=== PATIENT | female | born 1975 | race Caucasian/White ===

== ENCOUNTER → 2017-06-27 | Outpatient (CLI) | payer BC ==
--- NOTE | 2017-06-27 17:55 | EKG ---
Date Performed: 06/27/2017 Time Performed: 07:38:46 PTAGE: 41 years EKG: Sinus rhythm . Nonspecific ST-T wave changes Borderline ECG NO PREVIOUS TRACING DOCTOR: Tucker Fermin Interpretating Date/Time 06/27/2017 17:54:29
== END ==
LOC: HCAV 07:28
PROVIDERS: ATTEND Surgery
DX: Z01.810 Encounter for preprocedural cardiovascular examination (principal)
CPT/HCPCS: 93005

== ENCOUNTER 2017-10-26 05:36 | Inpatient (IN) | payer BC ==
[~2017-10-26] VITALS: Ht 165.1 cm; Wt 120.0 kg
[2017-10-26] MEDS: ACETAMINOPHEN 1000 MG/100 ML 100 ML IV SCH ×2 (00:05→17:30)
[~2017-10-26 05:36] MED LIST: CHOL5000 PO; MAGN400T2 PO; MULT-65 PO
[2017-10-26] MEDS ORDERED: ceFAZolin 2 GM PREMIX 50 ML IV SCH (06:30)
[2017-10-26] MEDS ORDERED: METOPROLOL TARTRATE 25 MG TAB PO PRN (06:30)
[2017-10-26] MEDS ORDERED: SODIUM CHLORID 0.9% 500 ML IV PRN (06:30)
[2017-10-26] MEDS ORDERED: LACTATED RINGER'S 1000 ML IV PRN (06:30)
[2017-10-26] MEDS ORDERED: ACETAMINOPHEN 1000 MG/100 ML 100 ML IV SCH (06:30)
[2017-10-26] MEDS ORDERED: ONDANSETRON HCL 4 MG/2 ML VIAL IV PUSH SCH (06:30)
[2017-10-26] MEDS ORDERED: SCOPOLAMINE 1.5 MG PATCH T-DERMAL SCH (06:30)
[2017-10-26] MEDS ORDERED: CHLORHEXIDINE GLUCONATE 2 % 1 PACK (2 CLOTHS) TOPICAL PRN (06:30)
[2017-10-26] MEDS ORDERED: metroNIDAZOLE 500 MG INJ 100 ML IV SCH (06:30)
[2017-10-26] MEDS ORDERED: POVIDONE IODINE 5% (ANTISEPSIS KIT) 4 APPLICATIONS EACH NARE PRN (06:30)
[2017-10-26] MEDS ORDERED: APREPITANT 40 MG CAP PO SCH (06:30)
[2017-10-26] MEDS ORDERED: NEOSTIGMINE 5 MG/5 ML SYRINGE IV PUSH ONE (12:00)
[2017-10-26] MEDS ORDERED: ceFAZolin INJ 1,000 MG VIAL IV ONE (12:00)
[2017-10-26] MEDS ORDERED: PROPOFOL 200 MG/20 ML AMP IV ONE (12:00)
[2017-10-26] MEDS ORDERED: ROCURONIUM INJ 50 MG/5 ML SYRINGE IV PUSH ONE (12:00)
[2017-10-26] MEDS ORDERED: PHENYLEPH/NS 1000 MCG/10 ML SYR IV ONE (12:00)
[2017-10-26] MEDS ORDERED: GLYCOPYRROLATE 1 MG/5 ML SYRINGE IV PUSH ONE (12:00)
[2017-10-26] MEDS ORDERED: LIDOCAINE HCL 1% PF 5 ML SYRINGE OTHER ONE (12:00)
[2017-10-26] MEDS ORDERED: BUPIVACAINE/EPINEPHRINE 0.25% PF 10 ML VIAL ONE (12:57)
[2017-10-26] MEDS ORDERED: ACETAMINOPHEN 1000 MG/100 ML 100 ML IV ONE (14:29)
[2017-10-26] MEDS ORDERED: ACETAMINOPHEN 325MG/HYDROcodone 7.5MG/15ML UDC PO PRN (15:45)
[2017-10-26] MEDS: D5-1/2 NS + KCL 20 MEQ INJ 1,000 ML IV SCH ×2 (15:45→22:04)
[2017-10-26] MEDS ORDERED: Post-op Orders (for Pharmacy) OTHER ONE (15:45)
[2017-10-26] MEDS ORDERED: SODIUM CHLORIDE 0.9% FLUSH 10 ML FLUSH IV FLUSH PRN (15:45)
[2017-10-26] MEDS ORDERED: diphenhydrAMINE HCL ELIXIR 12.5 MG/5 ML CUP PO PRN (15:45)
[2017-10-26] MEDS ORDERED: diphenhydrAMINE HCL 50 MG/ML VIAL IV PUSH PRN (15:45)
[2017-10-26] MEDS ORDERED: ENALAPRILAT 1.25 MG/ML VIAL IV PUSH PRN (15:45)
[2017-10-26] MEDS ORDERED: ONDANSETRON HCL 4 MG/2 ML VIAL IV PUSH PRN (15:45)
--- NOTE | 2017-10-26 15:45 | HHI.PR ---
Immediate Post Op Note Procedure Date: Oct 26, 2017 Pre Op Diagnosis: morbid obesity, bmi 44, hypercholesteremia, arthritis, ibs Post Op Diagnosis: same, hiatal hernia Surgeon: Salty Sol MD [facility] Professional(s): Dr. Tolbert Procedure: lap sleeve gastrectomy, lap hiatal hernia repair Findings: no leak with methylene blue Complications: none Specimen(s) removed: none Estimated blood loss: 5cc Anesthesia: General Drains: None Patient to: PACU Patient Condition: Good Salty Sol MD Oct 26, 2017 15:45
[2017-10-26] MEDS ORDERED: MIDAZOLAM HCL 2 MG/2 ML VIAL ONE (15:59)
[2017-10-26] MEDS: METOCLOPRAMIDE HCL 10 MG/2 ML VIAL IV PUSH SCH ×2 (16:00→22:04)
[2017-10-26] MEDS: PANTOPRAZOLE SOD 40 MG DELAYED RELEASE TAB PO SCH (16:00)
[2017-10-26] MEDS ORDERED: *ONDANSETRON 4 MG VIAL PERIprocedural Use ONLY ONE (16:03)
[2017-10-26] MEDS ORDERED: *morphine SULFATE 8 MG/ML PERIprocedure ONLY ONE ×2 (16:18→18:17)
[2017-10-26] MEDS ORDERED: DO NOT ADM ANY ANTICOAGULANT DRUGS PRN (16:30)
[2017-10-26] MEDS ORDERED: *PROMETHAZINE 25 MG/ML VIAL PERIprocedural use ONLY ONE (16:34)
[2017-10-26] MEDS ORDERED: *MEPERIDINE 25 MG INJ VIAL PERIprocedural Use ONLY ONE (17:20)
[2017-10-26] MEDS: ENOXAPARIN SODIUM 40 MG/0.4 ML SYRINGE SQ SCH (20:00)
[2017-10-26] MEDS: SODIUM CHLORIDE 0.9% FLUSH 10 ML FLUSH IV FLUSH SCH (20:14)
[2017-10-26] MEDS ORDERED: *morphine SULFATE 10 MG/ML PERIprocedure ONLY ONE (20:23)
[2017-10-26] MEDS ORDERED: HYDROmorphone HCL PF 2 MG/ML VIAL ONE (20:41)
[2017-10-26] MEDS: metroNIDAZOLE 500 MG INJ 100 ML IV SCH (22:03)
[2017-10-27] VITALS (8 sets, daily range): BP systolic 107–161; BP diastolic 55–75; PULSE 62–70; RESP 18–20; TEMP 97.1–99.9; O2SAT 93–97
[2017-10-27] MEDS: metroNIDAZOLE 500 MG INJ 100 ML IV SCH ×2 (04:20→14:58)
[2017-10-27] MEDS: ACETAMINOPHEN 325MG/HYDROcodone 7.5MG/15ML UDC PO PRN ×3 (04:21→22:04)
[2017-10-27] MEDS: METOCLOPRAMIDE HCL 10 MG/2 ML VIAL IV PUSH SCH ×4 (04:23→22:04)
[2017-10-27] MEDS: ACETAMINOPHEN 1000 MG/100 ML 100 ML IV SCH ×2 (04:24→11:41)
[2017-10-27] MEDS: D5-1/2 NS + KCL 20 MEQ INJ 1,000 ML IV SCH ×3 (04:27→22:12)
[2017-10-27 06:09] LABS: AUTOMATED NEUTROPHIL # 9.2 TH/MM3 (1.8-7.7); BASOPHIL % 0.1 % (0.0-2.0); HEMATOCRIT 34.3 % (35.0-46.0); HEMOGLOBIN 12.1 GM/DL (11.6-15.3); LYMPH % 6.2 % (9.0-44.0); LYMPHOCYTE # 0.6 TH/MM3 (1.0-4.8); MEAN CELL VOLUME 91.1 FL (80.0-100.0); MEAN CORPUSCULAR HGB CONC 35.1 % (32.0-36.0); MEAN PLATELET VOLUME 9.2 FL (7.0-11.0); MONO % 3.7 % (0.0-8.0); MONOCYTE # 0.4 TH/MM3 (0-0.9); PLATELET COUNT 239 TH/MM3 (150-450); RED BLOOD COUNT 3.77 MIL/MM3 (4.00-5.30); RED CELL DISTRIBUTION WIDTH 12.7 % (11.6-17.2); WHITE BLOOD COUNT 10.2 TH/MM3 (4.0-11.0)
[2017-10-27 06:43] LABS: BICARBONATE 23.5 MEQ/L (21.0-32.0); CALCIUM 8.2 MG/DL (8.5-10.1); CREATININE 0.56 MG/DL (0.50-1.00)
[2017-10-27] MEDS: PANTOPRAZOLE SOD 40 MG DELAYED RELEASE TAB PO SCH (09:42)
[2017-10-27] MEDS: SODIUM CHLORIDE 0.9% FLUSH 10 ML FLUSH IV FLUSH SCH ×2 (09:42→22:08)
[2017-10-27] MEDS ORDERED: MORPHINE SULFATE 4 MG/ML INJ IV PUSH PRN (10:30)
[2017-10-27] MEDS ORDERED: DEXAMETHASONE SOD PHOS 20 MG/5 ML VIAL IV PUSH ONE (11:00)
--- NOTE | 2017-10-27 11:48 | HHI.PR ---
Subjective Subjective Notes Having a difficult time with nausea Going slow with PO fluids Objective Vitals/I&O Vital Signs Date Time Temp Pulse Resp B/P (MAP) Pulse Ox O2 Delivery O2 Flow Rate FiO2 10/27/17 08:40 97 21 10/27/17 08:00 98.7 64 18 112/57 (75) 10/26/17 20:30 Nasal Cannula 2 Labs Laboratory Tests Test 10/27/17 05:04 White Blood Count 10.2 Red Blood Count 3.77 Hemoglobin 12.1 Hematocrit 34.3 Mean Corpuscular Volume 91.1 Mean Corpuscular Hemoglobin 32.0 Mean Corpuscular Hemoglobin Concent 35.1 Red Cell Distribution Width 12.7 Platelet Count 239 Mean Platelet Volume 9.2 Neutrophils (%) (Auto) 90.0 Lymphocytes (%) (Auto) 6.2 Monocytes (%) (Auto) 3.7 Eosinophils (%) (Auto) 0.0 Basophils (%) (Auto) 0.1 Neutrophils # (Auto) 9.2 Lymphocytes # (Auto) 0.6 Monocytes # (Auto) 0.4 Eosinophils # (Auto) 0.0 Basophils # (Auto) 0.0 CBC Comment DIFF FINAL Differential Comment Blood Urea Nitrogen 10 Creatinine 0.56 Random Glucose 180 Calcium Level 8.2 Magnesium Level 2.0 Sodium Level 136 Potassium Level 3.6 Chloride Level 104 Carbon Dioxide Level 23.5 Anion Gap 9 Estimat Glomerular Filtration Rate 118 Cardiovascular: Regular Lungs: Clear Abdomen: Post-op tenderness Extremities: Perfused Wound Wound : Wound Location: Abdomen Appearance: Clean & Dry A/P Assessment and Plan 42yo F POD#1 laparoscopic VSG -Change metoclopramide to scheduled and add decadron 10mg IVx1 for nausea -Abdominal binder for support -Continue to increase fluids as tolerated -Needs to walk halls at least QID Discharge Planning D/C home in the morning Attending Statement patient seen at bedside some nausea will add decadron otherwise doing well keep one more day dvt ppx Attestation The exam, history, and the medical decision-making described in the above note were completed with the assistance of the mid-level provider. I reviewed and agree with the findings presented. I attest that I had a [id number] encounter with the patient on the same day, and personally performed and documented my assessment and findings in the medical record. Petrona Fontaine Oct 27, 2017 11:48 Salty Sol MD Oct 30, 2017 20:32
--- NOTE | 2017-10-27 12:21 | MP ---
cc: Salty Sol MD DATE OF OPERATION: 10/26/2017 DATE: 10/26/2017 PREOPERATIVE DIAGNOSES: Morbid obesity, BMI 44, hypercholesterolemia, arthritis, irritable bowel syndrome. POSTOPERATIVE DIAGNOSES: Morbid obesity, BMI 44, hypercholesterolemia, arthritis, irritable bowel syndrome. Hiatal hernia. SURGEON: Dr. Salty Sol. CARDIOLOGY NURSE PRACTITIONER: Dr. David Melchor. PROCEDURE PERFORMED: 1. Laparoscopic sleeve gastrectomy over a 36 ViSiGi bougie. 2. Laparoscopic hiatal hernia repair. ANESTHESIA: GETA. IV FLUIDS: See anesthesia sheet. ESTIMATED BLOOD LOSS: 5 mL. DRAINS: None. COMPLICATIONS: None. WOUND CLASSIFICATION: Clean/contaminated. SPECIMENS: None. FINDINGS: No leak of methylene blue and a moderate-sized hiatal hernia. INDICATIONS: The patient is a 42-year-old female who presented with morbid obesity, multiple attempts at weight loss without success. The patient also with multiple comorbidity conditions. Discussion for patient with bariatric surgery, decision for sleeve gastrectomy. DETAILS OF PROCEDURE: The patient was taken to the operating suite and placed in supine position. She was prepped and draped in the usual sterile fashion after induction of general endotracheal anesthesia. Brief timeout was done stating the correct patient, procedure, surgical site; we were all in agreement with this. Attention directed to 15 cm distal to the xiphoid. Under local anesthetic placed in the midline, a skin incision was made with an #11 blade. A 5 mm Optiview port was placed under direct visualization to obtain pneumoperitoneum. Under direct visualization no evidence of injury. Abdomen insufflated to 15 mm pneumoperitoneum. Several other ports were placed, including a 5 mm left lower quadrant port, followed by a second 5 mm mid-quadrant port. A 15 mm right lower quadrant port was placed and a 5 mm right upper quadrant port was placed. The right upper quadrant port was placed to use for liver retraction. All ports were injected prior with the local anesthetic to placement. The patient was placed in reverse Trendelenburg and airplaned with the left side up. Clementina-Flex retractor was placed. Left lobe of the liver was retracted. The greater curvature of the stomach was taken down using harmonic scalpel starting 5 cm proximal to the pylorus, carried up to the angle of His. Posterior ligament attachments were also taken down as well. There was a small hiatal hernia, actually moderate-sized identified. The left and right crura of the diaphragm were dissected out to fully expose this. The GE junction was mobilized into the abdominal cavity. The crura of the diaphragm was approximated anteriorly with a [id number] 0 silk suture. A 36 ViSiGi bougie was placed as a calibration device. Division of the stomach was done using a the 36-Polish ViSiGi bougie 5 cm proximal to the pylorus and carried towards the angle of His to remove approximately 80% of the stomach. This was done with NERI Flex Endo-DAKOTA stapler. First load was a black load, followed by green and 2 gold loads. All dmitry had SeamGuard reinforcement. This was done 2 cm left of the angle of incisura staple line a distance of 1 cm from the GE junction. The ViSiGi bougie was instilled with methylene blue fluid without evidence of leaking. Two syringes x 60 mL were done. No extravasation. A 2-0 Vicryl was used to secure the sleeve in 3 points along the staple line to the posterior leaflet of the SeamGuard, tacking to the gastrocolic ligament. Next Evicel was placed. Hemostasis was obtained. The excised sleeve gastrectomy stomach was removed from the right lower quadrant 15 mm port site. The 15 mm port site was closed with 0 Vicryl on a UR-6, 4-0 Monocryl used for subcuticular sutures at all port sites. Pneumoperitoneum was removed prior and ports were removed. Next, sterile dressings were placed including Mastisol and Steri-Strips. The patient tolerated the procedure well. There were no intraoperative complications. All lap and instrument counts were correct at the end of the procedure. The patient was extubated and taken stable to the PACU. MD SOUMYA Briggs/ROSALIO , 11:30 AM , 12:19 PM
[2017-10-27] MEDS ORDERED: METOCLOPRAMIDE HCL 10 MG/2 ML VIAL IV PUSH PRN (15:45)
[2017-10-27] MEDS: ENOXAPARIN SODIUM 40 MG/0.4 ML SYRINGE SQ SCH (22:04)
[2017-10-28 00:20] VITALS: BP 138/65; PULSE 71; RESP 20; TEMP 99.5; O2SAT 93
[2017-10-28] MEDS: METOCLOPRAMIDE HCL 10 MG/2 ML VIAL IV PUSH SCH ×3 (04:33→10:54)
[2017-10-28] MEDS: D5-1/2 NS + KCL 20 MEQ INJ 1,000 ML IV SCH ×2 (04:34→08:27)
[2017-10-28 08:00] VITALS: BP 168/77; PULSE 59; RESP 17; TEMP 98.7; O2SAT 96
[2017-10-28] MEDS: PANTOPRAZOLE SOD 40 MG DELAYED RELEASE TAB PO SCH (08:29)
[2017-10-28] MEDS ORDERED: ONDANSETRON HCL 4 MG/2 ML VIAL IV PUSH ONE (08:45)
[2017-10-28] MEDS ORDERED: DOCUSATE SODIUM 50 MG/SENNA 8.6 MG TAB PO SCH (09:00)
[2017-10-28 12:00] VITALS: BP 157/84; PULSE 66; RESP 17; TEMP 98.9; O2SAT 98
[2017-10-28] MEDS ORDERED: SCOP1PAT2 T-DERMAL (12:57)
--- NOTE | 2017-10-28 20:16 | HHI.PR ---
Subjective Subjective Notes mild nausea but much improved tolerating po 60cc/30min Objective Vitals/I&O Vital Signs Date Time Temp Pulse Resp B/P (MAP) Pulse Ox O2 Delivery O2 Flow Rate FiO2 10/28/17 12:00 98.9 66 17 157/84 (108) 98 10/28/17 10:44 21 10/26/17 20:30 Nasal Cannula 2 Lungs: Clear Abdomen: Other (soft incisional tenderness) A/P Assessment and Plan pod 2 lap sleeve PLAN doing well oob pain control ivf d/c home today Salty Sol MD Oct 28, 2017 20:16
== END 2017-10-28 15:16 | disposition home or self-care (01) | DRG 621 ==
LOC: HSDI 05:36 → N07A 20:54
PROVIDERS: ADMIT Surgery; ATTEND Surgery
PROC: 0BQT4ZZ Repair Diaphragm, Percutaneous Endoscopic Approach (ICD-10-PCS; 2017-10-26)
PROC: 0DB64Z3 Excision of Stomach, Percutaneous Endoscopic Approach, Vertical (ICD-10-PCS; principal; 2017-10-26 14:31)
DX: E66.01 Morbid (severe) obesity due to excess calories (principal); K44.9 Diaphragmatic hernia without obstruction or gangrene; K58.9 Irritable bowel syndrome, unspecified; Z68.41 Body mass index [BMI] 40.0-44.9, adult; E78.00 Pure hypercholesterolemia, unspecified; R11.0 Nausea; M19.90 Unspecified osteoarthritis, unspecified site; Z87.891 Personal history of nicotine dependence
CPT/HCPCS: 80048; 83735; 85025; 94150; J0131; J0690; J1100; J1170; J1650; J2175; J2250; J2270; J2370; J2405; J2550; J2710; J2765; J3010; J3480; J7120; J8501